=== PATIENT | female | born 1955 | race Caucasian/White ===

== ENCOUNTER 2024-09-03 11:14 | Outpatient (AMB) | payer OTHER, SELFPAY ==
[2024-09-03 11:32] VITALS: BP 111/75; PULSE 91; RESP 19; TEMP 36.3; O2SAT 93; BMI 21.9
--- NOTE | 2024-09-03 11:32 | PD.GSCLVISIT ---
Vital Signs - [facility] 09/03/24 11:32 Height 1.68 m Height Method Stated Weight 61.802 kg Weight Measurement Method Standing Scale BMI 21.9 BP 111/75 Blood Pressure Source Automatic Cuff Blood Pressure Location Left Upper Arm Position Sitting Respiration 19 Pulse 91 Pulse Source Monitor Temp 97.3 F Temp Source Temporal Artery Scan Pulse Oximetry (%) 93 L Oxygen Delivery Method Room Air Med/Allergies Allergies & Medications Allergies codeine Allergy (Verified 09/03/24 11:34) Medication Reconciliation tramadol 50 mg tablet 50 mg PO Q8H PRN pain #30 tabs 09/03/24 [Rx] MA Intake Visit Data Collection New Patient or Established: Established Patient (seen at [facility] within 3 years) Seen by Clinical Staff ONLY (RN/MA): No Reason for Visit:: INTESTINAL STOMA PROLAPSE Pain Present Currently: No Aboriginal Community Council Member Required: No PCP or OBGYN visit in last 3 months: Yes Hx Now: No Do You Feel Safe at Home: Yes Authorities Contacted: N/A Smoking Status Smoking Status: Current every day smoker Cessation Counseling Provided: TORRES was advised that quitting smoking is the single most important factor to protect the health of themselves and their family. Discussed the benefits of quitting smoking with patient. Encouraged patient to quit smoking and provided Cessation assistance materials and resources. Tobacco Use: Cigarette Years smoked: 34 Are you interested in quitting?: No Immunization / Flu Flu Vaccine in the Last 12 Months: No Flu Vaccine Exclusion Criteria: Refused by Patient Past Medical History Past Medical History CARDIAC: Positive Hypertension GENITOURINARY: Positive Genitourinary Disorders (recurrent UTI) Surgical History SURGICAL: Positive Abdominal Surgery (colectomy with colostomy placement, complication: stoma prolapse) and Mastectomy (left sided for breast cancer) Social History SOCIAL: Uses nicotine patch. Denies alcohol use. Denies illicit drug use. SMOKING STATUS: Smoking status: Current every day smoker HPI HPI Narrative 68 year old female with pmh of HTN, recurrent UTIs, breast cancer, and colon cancer presents with stoma prolapse for the past year. Patient describes the prolapse interfering with ADLs and causing tremendous pain. She denies taking any pain medications. Patient states that following the colectomy, she was not told by her physician to follow-up or to see an oncologist. Patient denies receiving any chemotherapy or radiation for the colon cancer. She admits to having some chemotherapy for her breast cancer about 9 years ago. She denies having had a colonoscopy, but did receive a sigmoidoscopy where the cancer was found previously. Patient states she is still experiencing dysuria, urgency, and frequency upon completing of antibiotics a few days ago. She states that this is the third course of antibiotics she has completed with no relief of UTI symptoms. PMH: HTN, breast CA, [id number] colon CA PSHx: Mastectomy, Laparoscopic loop colostomy 08/2023, laparotomy with sigmoidectomy, ureteral reimplantation and hysterectomy 09/2023 Meds: No antiplt or anticoagulation Allergies: Codeine (pt states she has taken tramadol without any issues) Family hx: No known CRC but sister also had breast CA Social hx: Using nicotine patches to quit smoking Currently taking 10 mg of lisinopril daily. Most Recent Cardiac Tests: No Data to Display Current symptoms: Reports dysuria, urinary urgency and urinary frequency; Denies fever(s) or chills Incompletely treated UTI: Yes ROS Constitutional Constitutional: Denies chills, Denies fever(s) and Denies night sweats Genitourinary Genitourinary: Reports dysuria, Reports urinary frequency and Reports urinary urgency Objective/Exam General General Appearance: alert, cooperative and well groomed Resp Respiratory exam: Absent respiratory distress Abdominal Abdominal exam: Present soft and hernia (prolapse of stoma into colostomy bag that is reducible. ); Absent distention Assessment & Plan Diagnosis / Problem List (1) Colostomy prolapse: Status: Acute Assessment & Plan: Plan for colonoscopy to assess the rest of the colon for any remaining cancer as well as CT/CXR for staging. Based on screening, it may be necessary for patient to see an oncologist for further work-up. I explained to pt that I may be able to offer reversal depending upon these findings, but if it seems complex it may be best to refer to a tertiary center. She expressed understanding and is agreeable with this plan Orders: Orders XR chest 1V [address] abdomen pelvis w con 1 Week Advanced Care Planning Advance care planning discussed with:: patient Office Procedures GNS Level of Care Nursing/Assessment Patient Status: Initial/New Patient Nursing Assessment/Reassesment: Medication Reconciliation, Update PMH in EMR and Vital Signs Coordination of Care: Complex Care and Chronic Disease 1-5, Consent,records obtained, informed consent, Education Simp Pt/Fam, 1 Ins Authorization, Results/Orders obtained and Staff clarify orders New Patient Charge New Patient Point Assignment: 1104 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
== END 2024-09-03 12:06 | disposition home or self-care (01) ==
PROVIDERS: PCP Student in an Organized Health Care Education/Training Program; Referring Provider Student in an Organized Health Care Education/Training Program; Supervising Provider Surgery; Visit Provider Surgery
DX: K94.09 Other complications of colostomy (principal)
CPT/HCPCS: 99203; G0463

== ENCOUNTER 2024-10-25 09:45 | Day surgery (SDC) | payer OTHER, SELFPAY ==
[2024-10-25] VITALS (20 sets, daily range): BP systolic 128–202; BP diastolic 78–112; PULSE 57–72; RESP 12–25; TEMP 36.2–36.7; O2SAT 92–100; BMI 22.7
[2024-10-25] MEDS: RINGERS LACTATED 1000 ML 1,000 ML 125 ML IV (11:45)
[2024-10-25] MEDS: DiphenhydrAMINE INJ 50 MG/ML VIAL 25 MG IV (11:48)
[2024-10-25] MEDS: fentaNYL CIT INJ 50 mCg/ML AMP 2ML (ASD USE ONLY) IV (11:49)
[2024-10-25] MEDS: MIDAZOLAM INJ 1 MG/ML VIAL 2 ML (ASD USE ONLY) 2 MG IV (11:51)
[2024-10-25] MEDS: MEPERIDINE INJ 25 MG/ML VIAL (ASD USE ONLY) 50 MG IV (12:15)
[2024-10-25] MEDS: GLUCAGON INJ 1 MG VIAL IVP (12:16)
[2024-10-25] MEDS: ONDANSETRON INJ 2 MG/ML INJ 2 ML 4 MG IV (12:46)
== END 2024-10-25 13:53 | disposition home or self-care (01) ==
PROVIDERS: PCP Internal Medicine; Referring Provider Surgery; Visit Provider Surgery
PROC: 0DBE8ZX Excision of Large Intestine, Via Natural or Artificial Opening Endoscopic, Diagnostic (ICD-10-PCS; CPT 45380; principal; 2024-10-25 11:30)
DX: Z12.11 Encounter for screening for malignant neoplasm of colon (principal); Z85.038 Personal history of other malignant neoplasm of large intestine; D12.0 Benign neoplasm of cecum; D12.2 Benign neoplasm of ascending colon; D12.3 Benign neoplasm of transverse colon; D12.4 Benign neoplasm of descending colon
CPT/HCPCS: 44394; A4217; A4649; J1200; J1610; J2175; J2250; J2405; J3010; J7120

== ENCOUNTER → 2024-11-14 | Outpatient (CLI) | payer OTHER, SELFPAY ==
[2024-11-14 10:47] LABS: Blood Urea Nitrogen 22 mg/dL (9-23); Creatinine (Component) 0.9 mg/dL (0.6-1.3); eGFR > 60 See Note
--- NOTE | 2024-11-14 13:02 | XR_ITS ---
Examination: CT abdomen with intravenous contrast CT pelvis with intravenous contrast 2-D coronal reconstructions 2-D sagittal reconstructions Date and time of exam:November 14, 2024 1310 hours INDICATIONS: Lower abdominal pain today, scheduled for hernia repair tomorrow. CTDI: vol (mGy) 6.64 DLP: (mGycm) 354 Technique: Multiple axial sections of the abdomen and pelvis have been obtained. 64 slice high-resolution scanner used. 3 mm axial sections have been obtained, post intravenous injection 60 cc [id number] 2-D sagittal, coronal reconstructions obtained. Low dose protocols were performed. One or more of the following dose reduction techniques were used; automated exposure control, adjustment of the mA and/or KV according to patient size, use of iterative reconstruction technique. Findings: No focal liver or splenic lesion Absent gallbladder No pancreatic mass Air in the left renal collecting system Small bilateral renal cysts Mild left hydronephrosis, large staghorn calculi in the left renal pelvis, in aggregate measuring 30 mm with a left ureteral stent 3 cm bladder calculus, more caudad 3.4 cm bladder calculus Urinary bladder wall thickening up to 13 mm Right inguinal hernia at least 4 cm containing small bowel but no incarcerated bowel Left anterior pelvic wall apparent ostomy defect but clinical correlation advised, no incarcerated bowel IMPRESSION: Mild left hydronephrosis, large staghorn calculi in the left renal pelvis, large bladder calculi Right inguinal hernia containing small bowel but no incarcerated bowel
== END | disposition home or self-care (01) ==
LOC: CDIM 09:50 → COPL 09:55
PROVIDERS: PCP Specialist; Referring Provider Surgery; Visit Provider Radiology Diagnostic Radiology
DX: N13.2 Hydronephrosis with renal and ureteral calculous obstruction (principal); N21.0 Calculus in bladder; K40.90 Unilateral inguinal hernia, without obstruction or gangrene, not specified as recurrent; K46.9 Unspecified abdominal hernia without obstruction or gangrene; K94.09 Other complications of colostomy
CPT/HCPCS: 36415; 74177; 82565; 84520; A4649; Q9967

== ENCOUNTER 2024-11-16 12:19 | Inpatient (IN) | payer OTHER, MEDICARE, SELFPAY ==
--- NOTE | 2024-11-14 10:30 | EKG_ITS ---
[facility] Test Date: 2024-11-14 Pat Name: TORRES WILKINSON Department: Room: - Gender: Female Teaching Fellow: KAYLEY : 1955 Requested By: Tito Li Order Number: [id number] Reading MD: Tito Li Measurements Intervals [place] Rate: 61 P: 30 AL: 158 QRS: 35 QRSD: 94 T: 83 QT: 423 QTc: 427 Interpretive Statements SINUS RHYTHM No previous ECG available for comparison /store/S0/[id number]/ecg/[id number].pdf
[2024-11-14 11:21] VITALS: BMI 22.3
[2024-11-14 11:48] LABS: Collection Type, Urine Clean Catch
[2024-11-14 12:28] LABS: Basophils % (Auto) 0 % (0-2.5); Eosinophils # (Auto) 0.3 Thou/mm3 (0.0-0.5); Eosinophils % (Auto) 4 % (0-10); Hematocrit 37.9 % (36.0-46.0); Hemoglobin 12.7 g/dL (12.0-16.0); Immature Granulocytes % (Auto) 0 % (0-0); Immature Granulocytes Auto 0.02 Thou/mm3 (0.00-0.00); Lymphocytes # (Auto) 2.1 Thou/mm3 (1.0-4.8); Lymphocytes % (Auto) 29 % (10-50); Mean Corpuscular HGB Conc 33.5 g/dl (31.0-37.0); Mean Corpuscular Hemoglobin 29.3 pg (25.0-35.0); Mean Corpuscular Volume 88 fL (80-100); Monocytes # (Auto) 0.4 Thou/mm3 (0.0-0.8); Monocytes % (Auto) 5 % (0-12); Neutrophils # (Auto) 4.4 Thou/mm3 (1.8-7.7); Neutrophils % (Auto) 62 % (37-80); Nucleated Red Blood Cell % 0 /100 WBC (0); Platelet Count 307 Thou/mm3 (140-440); RDW Standard Deviation 47.8 fL (36.4-46.3); Red Blood Count 4.33 Miln/mm3 (4.00-5.20); White Blood Count 7.1 Thou/mm3 (3.6-11.0)
[2024-11-14 12:34] LABS: Bilirubin,Urine Negative (Negative); Blood,Urine 2+ (Negative); Color,Urine Yellow (Lt Yel-Yel); Glucose, Urine Negative (Negative); Ketones,Urine Negative (Negative); Leukocyte Esterase,Urine Positive (Negative); Nitrite,Urine Negative (Negative); Protein,Urine 2+ (Neg - Trace); RBC,Urine 374 /hpf (0-3); Specific Gravity,Urine 1.016 (1.001-1.035); Squamous Epithelial Cell,Urine 1 /hpf (0-5); Urobilinogen,Urine Negative mg/dL (0.0-1.0); WBC,Urine 1294 /hpf (0-5)
[2024-11-14 12:35] LABS: Clarity,Urine Cloudy (Clear/Hazy)
[2024-11-14 12:37] LABS: Partial Thromboplastin Time 27.6 Seconds (22.0-36.0)
[2024-11-14 12:54] LABS: Alanine Aminotransferase 7 U/L (10-49); Albumin, Serum 4.2 gm/dL (3.4-4.8); Albumin/Globulin Ratio 1.4 (1.2-2.2); Alkaline Phosphatase 80 U/L (46-116); Anion Gap 9 (7-16); Aspartate Amino Transferase 16 U/L (0-34); BUN/Creatinine Ratio 22 Ratio (12-20); Bilirubin,Total 0.4 mg/dL (0.3-1.2); Blood Urea Nitrogen 22 mg/dL (9-23); Calcium 8.9 mg/dL (8.3-10.6); Calcium (Corrected) 8.9 mg/dL (8.5-10.1); Carbon Dioxide 24.4 mMol/L (20.0-31.0); Chloride 110 mMol/L (98-107); Estimated Creatinine Clearance 48.5 mL/min (>60); Glucose 89 mg/dL (74-106); Osmolality,Calculated 287 (275-295); Potassium 3.5 mMol/L (3.4-5.1); Sodium 143 mMol/L (136-145); Total Protein 7.2 gm/dL (5.7-8.2); eGFR > 60 See Note
[2024-11-15] VITALS (18 sets, daily range): BP systolic 98–177; BP diastolic 67–106; PULSE 56–76; RESP 12–20; TEMP 36.1–37.1; O2SAT 92–100; BMI 22.4; BMI 22.3
--- NOTE | 2024-11-15 13:12 | SUR.PHASEI ---
1312: Pt. AAOx4, vitals stable, breathing unlabored, no complaint of pain or nausea, dressing to ABD CDI, Stoma pink, report received from MD Paige and Mellisa VALDOVINOS.
[2024-11-15] MEDS: fentaNYL CIT INJ 50 mCg/ML AMP 2ML 25 MCG IV ×8 (13:21→17:28)
--- NOTE | 2024-11-15 13:40 | ESOP_ITS ---
Date of Procedure 11/15/24 Pre Op Diagnosis Intussusception of the colostomy Colostomy hernia History of colon cancer Post Op Diagnosis Same. Procedure Resection of large bowel and end colostomy 11/15/2024 Repair of incarcerated ventral paracolostomy hernia 12 cm Implantation of a phasic's ST patch Findings This patient had about 14 half of intussusception of the colostomy on the left lower quadrant. Colostomy was done when patient had resection of the colon and the ureter and then reimplantation of ureter to the bladder last year. She also has a stent in the bladder and ureters. There was a large defect in the colostomy opening abdominal wall measuring about 10 cm x 12 cm there was incarcerated ventral hernia. The incarcerated bowel was viable. About foot and half of the colon was resected. Procedure Description The patient was interviewed in the preop area the risk benefits and alternatives were discussed with the patient the type of procedure to be done was discussed with the patient and informed consent was obtained. Patient understands that we are not able to reconnect the colon to the residual rectum because of several reasons. She also has staghorn calculus in the left kidney and a stent in the left ureter and stones in the left ureter alongside the retained ureteric stent. All this was discussed with the patient in detail. The patient was taken back to the operating room and general anesthesia was administered in the satisfactory manner. A timeout procedure was carried out. The patient was given IV antibiotics in timely manner. Antiembolism measures were taken. The ventral paracolostomy hernia is large. Finally I was able to reduce the hernia after general anesthesia was administered. The abdomen was prepped and draped in usual manner. An incision was made around the colostomy edges and the colostomy takedown was carried out and then the colostomy stoma was sutured to itself closing the stoma. Subsequent to this the instruments and gowns were changed and abdomen was prepped and draped in usual manner. After that the intussuscepted colon was released from the scar tissue and the hernia attachments and then it was withdrawn out and about foot and half of colon came out. This was part of the ventral hernia. After that we selected a suitable length of the colon to be left in for for colostomy. FLORI was used to divide the colon at that level. This was about 7 to 8 cm from the skin level. The mesentery was divided with the Enseal device. After that the dissection was carried out in the ventral paracolostomy hernia sac was removed. The defect of the ventral hernia was measured and it was about 12 cm. Hemostasis is achieved. Then I repaired the defect in the abdominal wall with 0 Ethibond [id number] stitches above and below the colostomy. It appears that the original muscular incision was made was vertical and that had enlarged in both directions. After closing the defect in the fascia I made sure that there was enough space around the colon that allowed 2 fingers around the colostomy. Then I took seromuscular stitches of 2- 0 Vicryl between the bowel and the fascia and about 8 places around the colon so as to prevent retraction into the abdominal cavity. After the repair was completed and it was about 5 cm above and 5 cm below the colostomy. After that I secured hemostasis all the way around the colostomy site there was a big space because of the space previously occupied by a ventral paracolostomy hernia. After that I took the phasic ST patch measured it and selected a place on the patch to make a donut hole. Then I put that patch over the colostomy as a donut with the end of the colon coming out from the donut hole. This went down nicely on the fascia. There is 2 sites of the phasic ST patch 1 side is rough that was placed towards the fascia and one is smooth which was towards the colon. The patch was then sutured to the fascia with interrupted 0 Ethibond stitches. It was secured circumferentially. After this I matured the colostomy the suture staple line was removed and I placed about 8 stitches to produce a belen and everting the colostomy like Aranda colostomy. After maturing the colostomy I digitally examined the colostomy patency and it allowed my index finger to go all the way into the peritoneal side without any difficulty. This way I am sure that there is no obstruction. I prepped the abdominal wall and placed a colostomy bag. Patient tolerated the procedure very well. Complications none. Anesthesia GETA Drains None. Implants Phasic's ST patch Pathology / specimen Other (Colon resection, end of colostomy suture line) Estimated Blood Loss 10 Condition Stable Disposition PACU Surgeon Tito Li MD Surgical Staff Operation Date: 11/15/24 09:30 Case Staff Anesthesiologist: Shine Paige RN First Assistant: Mikki Wisdom
--- NOTE | 2024-11-15 14:07 | PD.SURPROG ---
Documentation for date of: 11/15/24 Subjective Subjective Brief History: This patient has a problem with a large ventral hernia with colostomy and requires repair she has a history of colectomy resection of the ureter and replantation in the bladder and hysterectomy. She is brought to the hospital for management of the intussuscepting and colostomy and the ventral hernia associated with that. I informed consent was obtained. Postoperatively she is doing well after the surgery and she will be kept overnight for pain control. IV pain medications will be used until patient's colostomy is moving. Exam Vital Signs Temp Pulse Resp BP Pulse Ox O2 Flow Rate 97.5 F 60 20 161/88 H 97 2 11/15/24 13:42 11/15/24 13:42 11/15/24 13:42 11/15/24 13:42 11/15/24 13:42 11/15/24 13:42 Constitutional Constitutional: no acute distress Routine HEENT Exam Head: Present normocephalic Eye: Present EOMI and PERRL ENT: Present mucous membranes moist Routine Neck Exam Neck: Present supple and trachea midline Routine Chest/Breast/Axilla Exam Chest wall: Absent tenderness or mass Routine Respiratory Exam Respiratory: Present chest non-tender, lungs clear, normal breath sounds and no resp distress; Absent respiratory distress Routine Cardiovascular Exam Cardiovascular: Present RRR Routine Abdominal Exam Abdominal: Present soft and normoactive bowel sounds Comments: There is a midline scar from previous laparotomy and there is a large ventral incarcerated hernia on the left side of the abdomen colostomy is a prolapsed to about 40-1/2 and there is significant tenderness in this. This requires ventral hernia reduction and repair of the hernia with a patch as well as reconstruction of the colostomy as well as resection of the bowel. This is a complex case. Routine Extremities Exam Extremities: Present full ROM Routine Skin Exam Skin: Present intact, dry and warm Routine Neurological Exam Neurological: Present alert, oriented X3 and CN II-XII intact Routine Psychiatric Exam Psychiatric: Present normal affect and normal thought process Assessment & Plan Diagnosis (1) Incarcerated ventral hernia: Status: Acute (2) Personal history of colon cancer: Status: Acute Plan Management of the pain and wait for colostomy function to return and patient may be discharged home. Procedures Procedures Resection of large bowel and end colostomy 11/15/2024 Repair of incarcerated ventral paracolostomy hernia 12 cm Implantation of a phasic's ST patch
[2024-11-15] MEDS: RINGERS LACTATED 1000 ML 1,000 ML 50 ML IV (14:40)
--- NOTE | 2024-11-15 16:37 | SUR.PHASEII ---
1637: Pt. currently sleeping, vitals stable, breathing unlabored, no signs of distress, colostomy bag CDI, no active bleed noted, report given to Annamarie VALDOVINOS to resume care of pt.
--- NOTE | 2024-11-15 16:44 | SUR.PHASEII ---
1640 Pt resting comfortably awake and alert no complaints no s/s of distress noted, left lower quadrant colostomy bag intact, vitals stable continue to monitor pt vital signs and status.
--- NOTE | 2024-11-15 17:55 | SUR.PHASEII ---
1740 Transfer to room 365 in stable condition no complaints no s/s of distress noted, no change to left lower quadrant colostomy bag.
[2024-11-15] MEDS: KETOROLAC INJ 30 MG/ML VIAL IVP (18:13)
[2024-11-15] MEDS: ACETAMINOPHEN IVPB 1,000 MG/100 ML VIAL 250 MG IV (18:18)
[2024-11-15] MEDS: GABAPENTIN 100 MG CAPSULE 200 MG PO (20:34)
[2024-11-16] VITALS: BP 117/71; PULSE 58; RESP 16; TEMP 36.2; O2SAT 96
[2024-11-16] MEDS: KETOROLAC INJ 30 MG/ML VIAL IVP ×4 (00:36→17:21)
[2024-11-16] MEDS: ACETAMINOPHEN IVPB 1,000 MG/100 ML VIAL 250 MG IV ×3 (00:36→11:30)
[2024-11-16 04:00] VITALS: BP 117/69; PULSE 61; RESP 14; TEMP 36; O2SAT 96
--- NOTE | 2024-11-16 07:45 | PD.SURPROG ---
Documentation for date of: 11/16/24 Subjective Subjective Brief History: This patient has a problem with a large ventral hernia with colostomy and requires repair she has a history of colectomy resection of the ureter and replantation in the bladder and hysterectomy. She is brought to the hospital for management of the intussuscepting and colostomy and the ventral hernia associated with that. I informed consent was obtained. Postoperatively she is doing well after the surgery and she will be kept overnight for pain control. IV pain medications will be used until patient's colostomy is moving. November 16, 2024 postop day 1: Patient has pain 4 out of 10 she is responding to the IV narcotic and pain medications she will be switched over to oral pain medication the colostomy is functioning has a small amount of stool as well as a gas in the colostomy. There are no other issues or complaints. Patient will be discharged home today to be followed in Dr. Li's office within 1 to 2 weeks. Patient already knows how to take care of the colostomy bags. Exam Vital Signs Temp Pulse Resp BP Pulse Ox O2 Del Method O2 Flow Rate 96.8 F 61 14 117/69 96 Nasal Cannula 2 11/16/24 04:00 11/16/24 04:00 11/16/24 04:00 11/16/24 04:00 11/16/24 04:00 11/16/24 04:00 11/16/24 04:00 Narrative Exam Cardiopulmonary examination is normal patient is alert in oriented extremities are unremarkable. Assessment & Plan Diagnosis (1) Incarcerated ventral hernia: Status: Acute (2) Colostomy prolapse: Status: Acute (3) Personal history of colon cancer: Status: Acute Plan Discharged home on oral pain medication follow-up in the office in 2 weeks. Procedures Procedure Date 11/15/24 Procedures Resection of large bowel and end colostomy 11/15/2024 Repair of incarcerated ventral paracolostomy hernia 12 cm Implantation of a phasic's ST patch
--- NOTE | 2024-11-16 07:47 | PD.SURDS ---
Planned Discharge Date 11/16/24 DS: Providers Provider Date of admission: 11/15/2024 Primary care physician: Bharti Last MD Attending Provider on Admission: Tito Li MD Attending Provider on DC: Tito Li MD Discharging Provider: Tito Li MD Diagnosis Discharge Diagnosis (1) Incarcerated ventral hernia: Status: Acute (2) Colostomy prolapse: Status: Acute (3) Personal history of colon cancer: Status: Acute Problem List Completed Was Problem List Reviewed/Reconciled?: Yes Hospital Course This patient was taken to the operating room because of a large ventral hernia on the left side of the abdominal wall as well as prolapse of the colostomy the colon was prolapsed to about 18 inches. This required resection of the colon and reconstruction of the colostomy repair of the ventral hernia and implantation of an phasic's ST patch. Postoperatively she required IV pain medication for pain control and then the colostomy has started functioning the patient is being discharged home to be followed in Dr. Li's office within 2 weeks. Patient already knows how to manage the colostomy.. Exam Vital Signs Temp Pulse Resp BP Pulse Ox O2 Del Method O2 Flow Rate 96.8 F 61 14 117/69 96 Nasal Cannula 2 11/16/24 04:00 11/16/24 04:00 11/16/24 04:00 11/16/24 04:00 11/16/24 04:00 11/16/24 04:00 11/16/24 04:00 Narrative Exam Cardiopulmonary examination is normal abdomen is soft and nontender extremities are unremarkable colostomy is viable and is draining small amount of liquid as well as gas. There are no other physical issues. Discharge Plan Plan Patient Disposition: HOME (Self Care) Prescriptions/Referrals Prescriptions/Med Rec: New hydrocodone-acetaminophen 10-325 mg tablet 1 tab PO Q6H MDD 4 PRN (Reason: pain) Qty: 14 0RF ciprofloxacin HCl 500 mg tablet 500 mg PO Q12H Qty: 20 0RF Rx Instructions: administer dose 2 hrs before/6 hrs after dairy products/calcium/zinc/iron-containing products Continued rosuvastatin 20 mg tablet 20 mg PO DAILY Patient Comments: take 1 tablet by mouth once daily Referrals: Bharti Last MD [Primary Care Provider] - Patient/Caregiver Discharge Instructions Other Discharge Activity Instructions:: Resume colostomy care. Other Discharge Diet Instructions: Resume preadmission diet Print Language: Tuvaluan Stand Alone Forms: [employer] Info., Patient Portal Info Letter Discharge Order Discharge Orders: Discharge (Routine); Ordered 11/16/24 Ordered By: Tito Li Procedures Procedures Resection of large bowel and end colostomy 11/15/2024 Repair of incarcerated ventral paracolostomy hernia 12 cm Implantation of a phasic's ST patch
[2024-11-16 07:58] VITALS: BP 100/65; PULSE 64; RESP 15; TEMP 36.8; O2SAT 97
[2024-11-16] MEDS: GABAPENTIN 100 MG CAPSULE 200 MG PO (09:02)
[2024-11-16] MEDS: ATORVASTATIN CALCIUM 20 MG TABLET 80 MG PO (09:02)
[2024-11-16] MEDS: PROMETHAZINE INJ 12.5 MG in SODIUM CHLORIDE 0.9% 50 ML 2.5 MG IV (09:02)
[2024-11-16 12:00] VITALS: BP 109/67; PULSE 81; RESP 18; TEMP 36.7; O2SAT 94
[2024-11-16 16:00] VITALS: BP 127/76; PULSE 60; RESP 16; TEMP 36.4; O2SAT 95
[2024-11-16 17:24] VITALS: PULSE 60; RESP 17; O2SAT 98
--- NOTE | 2024-11-16 19:07 | PC.NURSE ---
Discharge pending transportation. Previously spoke with Yo Ambriz who stated he will be able to transport.
== END 2024-11-16 19:09 | disposition home or self-care (01) | DRG 330 ==
LOC: S2EX 12:20 → S3NX 12:20
PROVIDERS: Admitting Provider Specialist; PCP Student in an Organized Health Care Education/Training Program; Referring Provider Specialist; Visit Provider Specialist
PROC: 0DBE0ZZ Excision of Large Intestine, Open Approach (ICD-10-PCS; CPT 49000; principal; 2024-11-15 09:15)
DX: K94.09 Other complications of colostomy (principal); K43.3 Parastomal hernia with obstruction, without gangrene; K56.1 Intussusception; N20.2 Calculus of kidney with calculus of ureter; Z85.038 Personal history of other malignant neoplasm of large intestine; Z96.0 Presence of urogenital implants; Z90.49 Acquired absence of other specified parts of digestive tract; Z90.710 Acquired absence of both cervix and uterus; Y83.3 Surgical operation with formation of external stoma as the cause of abnormal reaction of the patient, or of later complication, without mention of misadventure at the time of the procedure
CPT/HCPCS: 36415; 80053; 81001; 85025; 85730; 87086; 93005; A4217; A4649; C1781; J0131; J0461; J0694; J0744; J1885; J2250; J2550; J2704; J2795; J3010; J3490; J7120; A9270